=== PATIENT | male | born 1975 | race Caucasian/White ===

== ENCOUNTER 2021-12-25 14:58 | Emergency (ER) | payer OTHER ==
[~2021-12-25] VITALS: Ht 190.5 cm; Wt 95.5 kg
[2021-12-25] MEDS ORDERED: KETOROLAC 30 MG/ML 1ML VIAL IM ONE (22:30)
[2021-12-25] MEDS ORDERED: traMADol 50 MG TAB PO ONE (22:30)
[2021-12-25] MEDS ORDERED: traMADol 50 MG TAB (HOME DOSE PACK) PO ONE (22:40)
[2021-12-25 22:44] VITALS: BP 147/82
== END 2021-12-25 22:59 | disposition home or self-care (01) ==
LOC: M ED 14:58
DX: S22.41XA Multiple fractures of ribs, right side, initial encounter for closed fracture (principal); W17.89XA Other fall from one level to another, initial encounter; Y92.89 Other specified places as the place of occurrence of the external cause
CPT/HCPCS: 71111; 94010; 96372; 99284; J1885